=== PATIENT | male | born 1950 | race Caucasian/White ===

== ENCOUNTER 2021-02-21 07:05 | Day surgery (SDC) | payer MEDICARE, SELFPAY ==
[2021-02-15 09:02] VITALS: BMI 38.9
[2021-02-21 08:05] VITALS: BP 130/68; PULSE 64; RESP 16; TEMP 36.2; O2SAT 97
[2021-02-21] MEDS: Lactated Ringers 1,000 ML 100 ML IVCONT (08:27)
--- NOTE | 2021-02-21 08:46 | MHC.SHP ---
Pre-Procedural Eval Section A Date of Service: 02/21/21 The patient is an INPATIENT: No Changes since office visit: No Cold of Flu in the past 2 weeks, No New Medical Problems, No Changes in Medication and No Patient answered all questions The History & Physical has been completed within 30 days and I have reviewed it.: Yes Section B Chief Complaint: screening Allergies: Allergies Allergy/AdvReac Type Severity Reaction Status Date / Time No Known Allergies Allergy Verified 02/15/21 09:01 Plan I have reviewed the history and physical and performed a pertinent physical examination on my patient. No changes have occurred unless specified.
--- NOTE | 2021-02-21 08:52 | P.CONAN_ITS ---
HPI - Anesthesia Eval Consult details Narrative: 70 yo male patient for colonoscopy [facility] Past Medical History Medical History CKD (chronic kidney disease), stage III Elevated cholesterol Erythroblastosis fetalis GERD (gastroesophageal reflux disease) [place] (hard of hearing) HTN (hypertension) On beta roxane at home Family History Family history of problems with anesthesia: No Surgical History Surgical History (Updated 02/21/21 @ 09:20 by Nanette Hyman MD) H/O brain surgery H/O thoracic aortic aneurysm repair Hx of colonoscopy Hx of tonsillectomy S/P ascending aortic aneurysm repair History of Problems with Anesthesia: No Social History Social History Are you DNR?: No Advance Directives: No Advance Directives Information Provided: No Advance Directives on File: No Meds Allergies Allergy/AdvReac Type Severity Reaction Status Date / Time No Known Allergies Allergy Verified 02/15/21 09:01 Home Medications Medication Instructions Recorded Confirmed Last Taken Type aspirin 81 mg tablet,delayed 81 mg PO DAILY 02/15/21 02/15/21 Unknown History release atorvastatin 40 mg tablet 40 mg PO DAILY 02/15/21 02/15/21 Unknown History chlorthalidone 25 mg tablet 25 mg PO DAILY 02/15/21 02/15/21 Unknown History lisinopril 20 mg tablet 20 mg PO DAILY 02/15/21 02/15/21 Unknown History metoprolol succinate 50 mg 50 mg PO DAILY 02/15/21 02/15/21 02/21/21 History tablet,extended release 24 hr omeprazole 20 mg capsule,delayed 20 mg PO DAILY 02/15/21 02/15/21 02/21/21 History release Exam Exam Date and Time: February 21, 2021 0852 Height,Weight and Vital Signs: Height 5 ft 10 in Weight 122.924 kg Last Vital Signs Temp 97.1 F 02/21/21 08:05 Pulse 64 02/21/21 08:05 Resp 16 02/21/21 08:05 BP 130/68 02/21/21 08:05 Pulse Ox 97 02/21/21 08:05 Airway Mallampati Class: III TM Dist: >3cm Neck ROM: Full Loose/Missing/Broken Teeth: Yes (1 extraction) Heart: RRR + murmur Lungs: CTAB Assessment and Plan Assessment Anesthesia Assessment: Anesthesia Plan Discussed and Chart Reviewed Final Anesthetic Review Family History of Problems with Anesthesia: No History of Problems with Anesthesia: No NPO: Yes ASA Class: III Final Preanesthetic Review: No Changes in Pt Med Stat, Meds/Allgs Chart Reviewed, Consent Obtained/Reviewed and Anes Risks/Benef Reviewed Patient Risk: Intermediate Procedure Risk: Low Assessment/Block/Sedation in SS: Assess/Block/Sedation-SS Anesthetic Plan Anesthetic Plan: MAC: Disposition: Standard PACU
--- NOTE | 2021-02-21 09:28 | PM.OP ---
Brief Operative Note Date of Service: 02/21/21 Pre-op diagnosis: screening Post-op diagnosis: same Surgeon: Chivo Ha Anesthesia: MAC Was an Manager Concrete used for this Procedure?: No Estimated blood loss (mL): 1 Pathology: other (polyp x1) Condition: stable Disposition: PACU
[2021-02-21 09:31] VITALS: BP 104/52; PULSE 47; RESP 16; TEMP 36.9; O2SAT 95
[2021-02-21 09:46] VITALS: BP 110/68; PULSE 48; RESP 18; TEMP 36.1; O2SAT 96
--- NOTE | 2021-02-21 12:21 | OP_ITS ---
SURGEON: Chivo Ha MD INDICATIONS: Colon cancer screening. PREOPERATIVE DIAGNOSIS: POSTOPERATIVE DIAGNOSIS: PROCEDURE PERFORMED: Colonoscopy to the cecum with biopsy. ESTIMATED BLOOD LOSS: COMPLICATIONS: ANESTHESIA: ASSISTANTS: SPECIMENS: MEDICATIONS: Monitored anesthesia care. DESCRIPTION OF PROCEDURE: History and physical performed. The risks and benefits of the procedure were explained to the patient. Informed consent was obtained. The patient was placed in the left lateral decubitus position. A digital rectal exam was performed and was found to be normal. The Olympus pediatric video colonoscope was introduced into the rectum and advanced to the cecum without difficulty. The cecum was identified by transillumination, palpation, and identification of ileocecal valve. Examination was performed and the scope was removed. He tolerated the procedure well and was taken to recovery area in stable condition. FINDINGS: The terminal ileum was not examined. The visualized colonic mucosa was normal. The quality of the prep was good. Single polyp in the rectum measuring less than 5 mm was identified and removed with biopsy forceps. Retroflexed examination showed moderate-sized internal hemorrhoids. There was moderate sigmoid diverticulosis. IMPRESSION: Colon polyp. RECOMMENDATION: Follow up the biopsy results. MD CINDY Resendez/ISAIAH / [id number] MTDD
== END 2021-02-21 10:37 | disposition home or self-care (01) ==
PROVIDERS: PCP Internal Medicine; Visit Provider Internal Medicine Gastroenterology
PROC: 0DJD8ZZ Inspection of Lower Intestinal Tract, Via Natural or Artificial Opening Endoscopic (ICD-10-PCS; CPT 45378; principal; 2021-02-21 09:00)
DX: Z12.11 Encounter for screening for malignant neoplasm of colon (principal); K62.1 Rectal polyp; K57.30 Diverticulosis of large intestine without perforation or abscess without bleeding; K64.8 Other hemorrhoids; K21.9 Gastro-esophageal reflux disease without esophagitis; I12.9 Hypertensive chronic kidney disease with stage 1 through stage 4 chronic kidney disease, or unspecified chronic kidney disease; N18.30 Chronic kidney disease, stage 3 unspecified; E78.00 Pure hypercholesterolemia, unspecified; Z79.82 Long term (current) use of aspirin; Z79.899 Other long term (current) drug therapy
CPT/HCPCS: 45380; 88305